=== PATIENT | male | born 1965 | race Caucasian/White ===

== ENCOUNTER 2021-06-23 16:46 | Emergency (ER) | payer MEDICAID, MEDICARE ==
--- NOTE | 2021-06-23 17:29 | EDM.PDOC ---
ED HPI GENERAL MEDICAL PROBLEM - General Chief Complaint: Gastrointestinal Problem Stated Complaint: LOWER ABD PAIN AND BOWEL MOVEMENT ISSUES Time Seen by Provider: 06/23/21 17:30 Source of Information: Reports: Patient, RN History Limitations: Reports: No Limitations - History of Present Illness INITIAL COMMENTS - FREE TEXT/NARRATIVE: no bowel movement for greater than a week. Patient states he is not passing any gas. Pt has taken as stool softner or a stool stimulant this am but this has not seemed to help. Pt continues to eat. No vomiting or nausea noted Onset: Gradual Duration: Getting Worse Location: Reports: Abdomen Quality: Reports: Pressure Improves with: Reports: None Worsens with: Reports: None Context: Reports: Sick Contact Associated Symptoms: Reports: Headaches Treatments EMISSIONS ENGINEER: Reports: Other (see below) (stool softner/stimulant this morning) - Related Data Allergies Allergy/AdvReac Type Severity Reaction Status Date / Time No Known Allergies Allergy Verified 06/23/21 17:09 Home Meds: Home Meds NK [No Known Home Meds] 06/23/21 [History] Social & Family History - Tobacco Use Tobacco Use Status *Q: Never Tobacco User ED ROS GENERAL - Review of Systems Review Of Systems: See Below Constitutional: Reports: No Symptoms Respiratory: Reports: No Symptoms Cardiovascular: Reports: No Symptoms Endocrine: Reports: No Symptoms GI/Abdominal: Reports: Abdominal Pain. Denies: Flatus : Reports: No Symptoms Musculoskeletal: Reports: No Symptoms Skin: Reports: No Symptoms Neurological: Reports: Headache Psychiatric: Reports: No Symptoms Hematologic/Lymphatic: Reports: No Symptoms ED EXAM, GI/ABD - Physical Exam Exam: See Below Exam Limited By: No Limitations General Appearance: Alert, Mild Distress Respiratory/Chest: No Respiratory Distress, Lungs Clear, Normal Breath Sounds Cardiovascular: Normal Peripheral Pulses, Regular Rate, Rhythm, No Edema GI/Abdominal Exam: Soft, Distended, Tender, Abnormal Bowel Sounds (hypo). No: Non-Tender Neurological: Alert, Oriented Psychiatric: Normal Affect, Normal Mood Skin Exam: Warm, Dry, Intact Course - Vital Signs Last Recorded V/S: Last Vital Signs Temp 36.5 C 06/23/21 17:12 Pulse 102 H 06/23/21 17:12 Resp 16 06/23/21 17:12 BP 150/94 H 06/23/21 17:12 Pulse Ox 95 06/23/21 17:12 - Orders/Labs/Meds Orders: Active Orders 24 hr Category Date Time Status Abdomen 1V Upright [CR] Stat Exams 06/23/21 17:30 Taken - Radiology Interpretation Free Text/Narrative:: Abdominal x-ray shows questionable obstruction will obtain CT of abdomen and pelvis for further evaluation. CT impression: 1. mild overall quantity of stool within the colon no obstruction. 2. Fatty infiltration of the liver 3. Mild dilation of the renal collecting systems versus a parapelvic cyst no urinary calculus. 4. 1.7 cm right adrenal gland nodule. 5. Gallstone in the neck of the region of the gallbladder. Gallbladder does not appear excessively extended. 6. Enlarged prostate 7. 7 mm left lower lobe pulmonary nodule. Radiology recommends follow-up of c hest CT in 6 months or comparison with a prior CT if available. CT results reviewed with patient. Patient is encouraged to establish primary care. He states Dr. Panda Otero is his provider. He should follow-up in clinic with Dr. Otero to handle ongoing health as mentioned in the CT scan. He does note he has a appointment with Dr. Otero on Thursday. He is encouraged to keep this note and take his CT scan with him for further review at this time there is no urgent concern at this time. If patient's symptoms change or do not improve he should follow-up with his family provider for further evaluation. Departure - Departure Time of Disposition: 19:39 Disposition: Home, Self-Care 01 Condition: Fair Clinical Impression: Constipation, Abdominal pain - Discharge Information Instructions: Constipation, Adult, [id number], Abdominal Pain, Adult, [id number] Referrals: Timothy Otero Sr, MD [Primary Care Provider] - Forms: ED Department Discharge Additional Instructions: Observe a bland diet, avoid fatty foods as pain may be related to gallbladder. Gallbladder on CT does have a stone but does not show excessive distention of the gallbladder. Sepsis Event Note (ED) - Evaluation Sepsis Screening Result: No Definite Risk - Focused Exam Vital Signs: Vital Signs Temp Pulse Resp BP Pulse Ox 06/23/21 17:12 36.5 C 102 H 16 150/94 H 95 06/23/21 17:01 36.5 C 102 H 16 150/94 H 95 - My Orders Last 24 Hours: My Active Orders 06/23/21 17:30 Abdomen 1V Upright [CR] Stat - Assessment/Plan Last 24 Hours: My Active Orders 06/23/21 17:30 Abdomen 1V Upright [CR] Stat Assessment:: Abdominal pain, likely constipation versus gallbladder pain Plan: Observe a bland diet, keep appointment with Dr. Otero on Thursday. Follow-up with primary care provider in 6 months for pulmonary nodule found on CT.
--- NOTE | 2021-06-23 19:12 | CRLCT ---
For Patients: As a result of the Century Cures Act, medical imaging exams and procedure reports are released immediately into your electronic medical record. You may view this report before your referring provider. If you have questions, please contact your health care provider. HISTORY: Constipation. TECHNIQUE: Noncontrast CT of the abdomen and pelvis. COMPARISON: Radiographs 06/23/2021. FINDINGS: Fatty infiltration of liver with small areas of sparing adjacent to the gallbladder fossa. No biliary ductal dilatation. Gallstone within the neck region of gallbladder. Gallbladder does not appear excessively distended. Spleen size within normal limits. 1.7 cm right adrenal gland nodule demonstrates an internal density of approximately 30 Hounsfield units. This is not specific for an adenoma based on noncontrast CT. Mild thickening of the left adrenal gland is noted. No focal pancreatic abnormality. Either mild dilatation of the renal collecting systems or parapelvic cysts. There is no ureteral calculus on either side nor intrarenal calculus. And slight perinephric stranding is noted. Urinary bladder is mildly distended. Prostate is enlarged. - No small bowel obstruction. No appendicitis. Mild overall quantity of stool within the colon, greatest at the rectosigmoid junction level. No diverticulitis. No fluid collection or free air. Atherosclerotic changes of the abdominal aorta without aneurysm. Small retroperitoneal lymph nodes are not technically enlarged by imaging criteria. - 7 mm left lower lobe pulmonary nodule image #4 series 2. There are small reticulonodular opacities within the lingula which are likely inflammatory or postinflammatory. No consolidation within the lung bases. - Degenerative changes of the spine. Degenerative changes of the sacroiliac joints with bridging osteophytes on the left. Mild degenerative changes of the hips. IMPRESSION: 1. Mild overall quantity stool within the colon. No bowel obstruction. 2. Fatty infiltration of the liver. 3. Mild dilatation of the renal collecting systems versus parapelvic cysts. There is no urinary calculus. 4. 1.7 centimeter right adrenal gland nodule. 5. Gallstone in the neck region of the gallbladder. Gallbladder does not appear excessively distended. 6. Enlarged prostate. 7. 7 mm left lower lobe pulmonary nodule. Recommend followup chest CT in 6 months or comparison with prior chest CTs if available. Dictated by Ricci Zuniga MD @ 06/23/2021 7:10:27 PM Please note that all CT scans at this facility use dose modulation, iterative reconstruction, and/or weight-based dosing when appropriate to reduce radiation dose to as low as reasonably achievable. Dictated by: Ricci Zuniga MD @ 06/23/2021 19:10:34 (Electronically Signed)
--- NOTE | 2021-06-24 10:10 | CR ---
Abdomen 1V Upright CLINICAL HISTORY: Constipation FINDINGS: No free air is identified. There are scattered air-filled loops of small bowel with a few scattered air-fluid levels. There is a small amount of gas and feces in the colon. IMPRESSION: Small bowel distention with scattered air-fluid levels. This could be ileus. Obstruction is felt less likely. No significant fecal retention
== END 2021-06-23 19:44 | disposition home or self-care (01) ==
LOC: JP.ED 16:46
DX: K59.00 Constipation, unspecified (principal)
CPT/HCPCS: 74018; 74018-26; 74176; 99284-25

== ENCOUNTER 2021-06-28 05:22 | Day surgery (SDC) | payer MEDICARE ==
[2021-06-28] MEDS ORDERED: Sodium Chloride 0.9% 1,000 ML IV SCH (06:00)
[2021-06-28] MEDS ORDERED: Propofol 200 MG/20 ML SDV ONE (07:14)
[2021-06-28] MEDS ORDERED: Midazolam 1 MG/ML 2 ML SDV ONE (07:14)
[2021-06-28] MEDS ORDERED: fentaNYL 100 MCG/2 ML SDV ONE (07:14)
--- NOTE | 2021-06-28 10:43 | PROC ---
DATE OF PROCEDURE: 06/28/2021 SURGEON: Timothy Otero MD INDICATIONS: Sathish is a 56-year-old male who comes in for a colonoscopy. He has had constipation and abdominal pain and was scheduled for a back surgery and on the preop found a very small rectum and he had recently been to the emergency room, had a CAT scan of the abdomen, which was unremarkable. A colonoscopy was performed. I was unable to feel the prostate due to the small rectal os. PROCEDURE IN DETAIL: The procedure was explained to the patient and was taken to the OR. Anesthesia was given by nurse child and family therapist. The Olympus 180L scope was used and was placed into the rectum and advanced under direct vision. There was a poor prep noted throughout the entire area. We did get to the cecum. Picture was taken of the cecum area. The remainder of the colon showed a very poor prep throughout the entire colon. No obvious pathology noted, but it was limited because of retained fecal matter. The tube was removed. The patient tolerated the procedure well. I did ask Dr. Olmedo, local surgeon, to look at the rectum. He felt nothing further should be done with this. PREOPERATIVE DIAGNOSIS: Change in bowel habits with constipation. POSTOPERATIVE DIAGNOSES: 1. Small rectal os. 2. Poor prep noted throughout the entire colon. No obvious pathology noted. Timothy Otero MD /[id number]
== END 2021-06-28 09:20 | disposition home or self-care (01) ==
LOC: JP.SDS 05:22
PROVIDERS: ATTEND Internal Medicine
DX: K59.00 Constipation, unspecified (principal); I10 Essential (primary) hypertension; E11.9 Type 2 diabetes mellitus without complications
CPT/HCPCS: 45378; J2250; J2704; J3010; J7030

== ENCOUNTER 2023-05-11 10:50 | Inpatient (IN) | payer MEDICARE ==
[2023-05-11] MEDS ORDERED: Sodium Chloride 0.9% 10 ML Syringe FLUSH PRN (14:40)
[2023-05-11] MEDS ORDERED: 50% Dextrose in Water 50 ML Syringe IVPUSH PRN ×2 (14:48→14:52)
[2023-05-11] MEDS ORDERED: Glucagon,Human Recombinant 1 MG Vial IM PRN ×2 (14:48→14:52)
[2023-05-11 15:04] LABS: BASOPHILS ABSOLUTE AUTO 0.04 K/uL (0.00-0.10); BASOPHILS PERCENT AUTO 0.5 % (0.1-1.3); EOSINOPHILS ABSOLUTE AUTO 0.12 K/uL (0.00-0.40); EOSINOPHILS PERCENT AUTO 1.4 % (0.0-5.4); HEMATOCRIT 44.5 % (38.4-49.7); HEMOGLOBIN 16.2 g/dL (12.9-16.9); IMMATURE GRAN ABSOLUTE AUTO 0.05 K/uL (0.00-0.23); IMMATURE GRAN PERCENT AUTO 0.6 % (0.0-0.7); LYMPHOCYTES ABSOLUTE AUTO 2.83 K/uL (0.8-3.3); LYMPHOCYTES PERCENT AUTO 32.3 % (11.4-47.7); MEAN CORPUSCULAR HEMOGLOBIN 32.1 pg (31.6-35.5); MEAN CORPUSCULAR HGB CONC 36.4 g/dL (31.6-35.5); MEAN CORPUSCULAR VOLUME 88.1 fL (81.4-99.0); MONOCYTES ABSOLUTE AUTO 0.69 K/uL (0.20-0.90); MONOCYTES PERCENT AUTO 7.9 % (3.3-12.6); NEUTROPHILS ABSOLUTE AUTO 5.03 K/uL (1.0-7.6); NEUTROPHILS PERCENT AUTO 57.3 % (40.0-78.1); PLATELET COUNT,PLT 206 K/uL (130-375); RED BLOOD CELL COUNT 5.05 M/uL (4.14-5.76); WHITE BLOOD CELL COUNT,WBC 8.8 K/uL (3.2-11.0)
[2023-05-11 15:25] LABS: A/G RATIO 1.1 (1.2-2.2); ALANINE AMINOTRANSFERASE,ALT 152 U/L (12-78); ALBUMIN 3.6 g/dL (3.4-5.0); ALKALINE PHOSPHATASE 202 U/L (46-116); ASPARTATE AMNIOTRANSFERASE,AST 72 U/L (15-37); BILIRUBIN TOTAL 0.8 mg/dL (0.2-1.0); BLOOD UREA NITROGEN,BUN 17 mg/dL (7-18); CALCIUM 9.4 mg/dL (8.5-10.1); CARBON DIOXIDE,CO2 29 mmol/L (21-32); CHLORIDE,CL 100 mmol/L (100-108); CREATININE 0.8 mg/dL (0.8-1.3); EST CRCL DRUG DOSING (CG) 88.62 mL/min; ESTIMATED GFR 103 mL/min (>60); GLUCOSE RANDOM 273 mg/dL (74-106); POTASSIUM,K 3.9 mmol/L (3.6-5.2); SODIUM,NA 137 mmol/L (140-148)
[2023-05-11 15:26] LABS: ANION GAP 11.9 mmol/L (5.0-14.0)
[2023-05-11 15:32] LABS: APPEARANCE,URINE CLEAR (CLEAR); BILIRUBIN,URINE NEGATIVE (NEGATIVE); COLOR,URINE YELLOW (YELLOW); GLUCOSE,URINE 500 mg/dL (NEGATIVE); KETONES,URINE NEGATIVE (NEGATIVE); LEUKOCYTE ESTERASE,URINE NEGATIVE (NEGATIVE); NITRITE,URINE NEGATIVE (NEGATIVE); OCCULT BLOOD,URINE NEGATIVE (NEGATIVE); PH,URINE 6.5 (5.0-8.0); PROTEIN,URINE NEGATIVE (NEGATIVE); UROBILINOGEN,URINE 0.2 EU/dL (0.2-1.0)
[2023-05-11 15:47] LABS: AMORPHOUS SEDIMENT,URINE NOT SEEN; BACTERIA,URINE FEW; EPITHELIAL CELLS,URINE NOT SEEN; MUCUS,URINE NOT SEEN; RBC,URINE 0-5 (0-5); WBC,URINE 0-5 (0-5)
[2023-05-11] MEDS: Insulin Glargine,Human Rec. Analog 100 Units/ML 3 ML Pen SUBCUT SCH (15:52)
[2023-05-11] MEDS ORDERED: Insulin Lispro Protamine/Lispro 75-25 100 Units/ML 10 ML Vial SUBCUT SCH (16:00)
[2023-05-11] MEDS: Insulin Lispro 100 Unit/ML 3 ML KwikPen SUBCUT SCH ×2 (16:54→23:00)
[2023-05-12] MEDS: Insulin Glargine,Human Rec. Analog 100 Units/ML 3 ML Pen SUBCUT SCH (08:03)
[2023-05-12] MEDS: Empagliflozin 10 MG Tab PO SCH (08:03)
[2023-05-12] MEDS: Insulin Lispro 100 Unit/ML 3 ML KwikPen SUBCUT SCH ×4 (08:07→21:05)
[2023-05-12] MEDS ORDERED: Insulin Lispro 100 Unit/ML 3 ML KwikPen SUBCUT SCH (09:00)
[2023-05-12 18:15] LABS: BASOPHILS ABSOLUTE AUTO 0.03 K/uL (0.00-0.10); BASOPHILS PERCENT AUTO 0.3 % (0.1-1.3); EOSINOPHILS ABSOLUTE AUTO 0.16 K/uL (0.00-0.40); EOSINOPHILS PERCENT AUTO 1.7 % (0.0-5.4); HEMATOCRIT 46.5 % (38.4-49.7); HEMOGLOBIN 16.5 g/dL (12.9-16.9); IMMATURE GRAN ABSOLUTE AUTO 0.06 K/uL (0.00-0.23); IMMATURE GRAN PERCENT AUTO 0.6 % (0.0-0.7); LYMPHOCYTES ABSOLUTE AUTO 3.11 K/uL (0.8-3.3); LYMPHOCYTES PERCENT AUTO 32.2 % (11.4-47.7); MEAN CORPUSCULAR HEMOGLOBIN 32.1 pg (31.6-35.5); MEAN CORPUSCULAR HGB CONC 35.5 g/dL (31.6-35.5); MEAN CORPUSCULAR VOLUME 90.5 fL (81.4-99.0); MONOCYTES PERCENT AUTO 7.3 % (3.3-12.6); NEUTROPHILS ABSOLUTE AUTO 5.59 K/uL (1.0-7.6); NEUTROPHILS PERCENT AUTO 57.9 % (40.0-78.1); PLATELET COUNT,PLT 200 K/uL (130-375); RED BLOOD CELL COUNT 5.14 M/uL (4.14-5.76); WHITE BLOOD CELL COUNT,WBC 9.7 K/uL (3.2-11.0)
[2023-05-12 18:37] LABS: ALANINE AMINOTRANSFERASE,ALT 157 U/L (12-78); ALBUMIN 3.5 g/dL (3.4-5.0); ALKALINE PHOSPHATASE 151 U/L (46-116); ANION GAP 10.1 mmol/L (5.0-14.0); ASPARTATE AMNIOTRANSFERASE,AST 95 U/L (15-37); BILIRUBIN TOTAL 0.7 mg/dL (0.2-1.0); BLOOD UREA NITROGEN,BUN 18 mg/dL (7-18); CALCIUM 9.7 mg/dL (8.5-10.1); CARBON DIOXIDE,CO2 32 mmol/L (21-32); CHLORIDE,CL 100 mmol/L (100-108); EST CRCL DRUG DOSING (CG) 70.79 mL/min; ESTIMATED GFR 88 mL/min (>60); GLUCOSE RANDOM 164 mg/dL (74-106); POTASSIUM,K 4.1 mmol/L (3.6-5.2); SODIUM,NA 138 mmol/L (140-148)
[2023-05-12] MEDS: Lisinopril 10 MG Tab PO SCH (18:44)
[2023-05-13] MEDS ORDERED: metFORMIN 500 MG Tab PO SCH (08:00)
[2023-05-13] MEDS: Empagliflozin 10 MG Tab PO SCH (08:22)
[2023-05-13] MEDS: Lisinopril 10 MG Tab PO SCH (08:22)
[2023-05-13] MEDS: Insulin Glargine,Human Rec. Analog 100 Units/ML 3 ML Pen SUBCUT SCH (08:24)
[2023-05-13] MEDS: Insulin Lispro 100 Unit/ML 3 ML KwikPen SUBCUT SCH ×4 (08:25→21:55)
[2023-05-13 12:08] LABS: ALBUMIN 3.4 g/dL (3.4-5.0); BILIRUBIN DIRECT 0.1 mg/dL (0.0-0.2); BILIRUBIN INDIRECT 0.7; BILIRUBIN TOTAL 0.8 mg/dL (0.2-1.0); PROTEIN TOTAL,TP 6.8 g/dL (6.4-8.2)
[2023-05-14] MEDS: Insulin Lispro 100 Unit/ML 3 ML KwikPen SUBCUT SCH ×2 (07:59→12:06)
[2023-05-14] MEDS: Lisinopril 10 MG Tab PO SCH (08:00)
[2023-05-14] MEDS: Insulin Glargine,Human Rec. Analog 100 Units/ML 3 ML Pen SUBCUT SCH (08:00)
[2023-05-14] MEDS: Empagliflozin 10 MG Tab PO SCH (08:01)
[2023-05-14 13:12] LABS: HBSAG SCREEN Negative (Negative); HCV AB Non Reactive (Non Reactive); HEP A AB, IGM Negative (Negative); HEP B CORE AB, IGM Negative (Negative)
== END 2023-05-14 12:25 | disposition home or self-care (01) | DRG 639 ==
LOC: JP.ICU 10:50 → JP.MS 05-12 12:03
PROVIDERS: ADMIT Internal Medicine; ATTEND Internal Medicine
DX: E11.9 Type 2 diabetes mellitus without complications (principal); I10 Essential (primary) hypertension; K59.09 Other constipation; M54.2 Cervicalgia; G89.29 Other chronic pain; Z20.822 Contact with and (suspected) exposure to COVID-19; M54.16 Radiculopathy, lumbar region; I20.9 Angina pectoris, unspecified; G47.00 Insomnia, unspecified; G47.30 Sleep apnea, unspecified; R19.7 Diarrhea, unspecified; M19.90 Unspecified osteoarthritis, unspecified site; M54.9 Dorsalgia, unspecified; R79.89 Other specified abnormal findings of blood chemistry; Z79.4 Long term (current) use of insulin; Z79.899 Other long term (current) drug therapy; Z87.81 Personal history of (healed) traumatic fracture; Z98.1 Arthrodesis status; Z98.890 Other specified postprocedural states; Z83.3 Family history of diabetes mellitus
CPT/HCPCS: 36415; 71046; 80053; 80074; 80076; 81001; 82947; 83605; 85025; A9270-GY; J1815; J1815-GY; U0002

== ENCOUNTER 2023-12-23 12:00 | Inpatient (IN) | payer MEDICARE ==
[2023-12-23 15:41] LABS: CORONAVIRUS COVID-19 NAA NEGATIVE (NEGATIVE); INFLUENZA A NAA NEGATIVE (NEGATIVE); INFLUENZA B NAA NEGATIVE (NEGATIVE); RESPIRATORY SYNCYTIAL VIR NAA NEGATIVE (NEGATIVE)
[2023-12-23 16:06] LABS: BASOPHILS ABSOLUTE AUTO 0.04 K/uL (0.00-0.10); BASOPHILS PERCENT AUTO 0.4 % (0.1-1.3); EOSINOPHILS ABSOLUTE AUTO 0.21 K/uL (0.00-0.40); EOSINOPHILS PERCENT AUTO 2.2 % (0.0-5.4); HEMATOCRIT 41.4 % (38.4-49.7); HEMOGLOBIN 15.1 g/dL (12.9-16.9); IMMATURE GRAN ABSOLUTE AUTO 0.05 K/uL (0.00-0.23); IMMATURE GRAN PERCENT AUTO 0.5 % (0.0-0.7); LYMPHOCYTES ABSOLUTE AUTO 3.29 K/uL (0.8-3.3); LYMPHOCYTES PERCENT AUTO 33.7 % (11.4-47.7); MEAN CORPUSCULAR HEMOGLOBIN 31.7 pg (31.6-35.5); MEAN CORPUSCULAR HGB CONC 36.5 g/dL (31.6-35.5); MONOCYTES ABSOLUTE AUTO 0.82 K/uL (0.20-0.90); MONOCYTES PERCENT AUTO 8.4 % (3.3-12.6); NEUTROPHILS ABSOLUTE AUTO 5.34 K/uL (1.0-7.6); NEUTROPHILS PERCENT AUTO 54.8 % (40.0-78.1); PLATELET COUNT,PLT 215 K/uL (130-375); RED BLOOD CELL COUNT 4.76 M/uL (4.14-5.76); WHITE BLOOD CELL COUNT,WBC 9.8 K/uL (3.2-11.0)
[2023-12-23] MEDS ORDERED: Glucagon,Human Recombinant 1 MG Vial IM PRN (16:17)
[2023-12-23] MEDS ORDERED: 50% Dextrose in Water 50 ML Syringe IVPUSH PRN (16:17)
[2023-12-23 16:29] LABS: A/G RATIO 1.1 (1.2-2.2); ALANINE AMINOTRANSFERASE,ALT 132 U/L (12-78); ALBUMIN 3.7 g/dL (3.4-5.0); ALKALINE PHOSPHATASE 133 U/L (46-116); ASPARTATE AMNIOTRANSFERASE,AST 95 U/L (15-37); BILIRUBIN TOTAL 0.6 mg/dL (0.2-1.0); BLOOD UREA NITROGEN,BUN 12 mg/dL (7-18); CALCIUM 9.1 mg/dL (8.5-10.1); CARBON DIOXIDE,CO2 27 mmol/L (21-32); CHLORIDE,CL 101 mmol/L (100-108); CREATININE 0.9 mg/dL (0.8-1.3); EST CRCL DRUG DOSING (CG) 77.82 mL/min; ESTIMATED GFR 99 mL/min (>60); GLUCOSE RANDOM 69 mg/dL (74-106); POTASSIUM,K 3.1 mmol/L (3.6-5.2); PROTEIN TOTAL,TP 7.2 g/dL (6.4-8.2); SODIUM,NA 138 mmol/L (140-148)
[2023-12-23 16:30] LABS: ANION GAP 13.1 mmol/L (5.0-14.0)
[2023-12-23 16:38] LABS: HEMOGLOBIN A1C 13.6 % (4.5-6.2)
[2023-12-23] MEDS: Insulin Lispro 100 Unit/ML 3 ML KwikPen SUBCUT SCH (17:38)
[2023-12-24] MEDS: Empagliflozin 25 MG Tab PO SCH (08:23)
[2023-12-24] MEDS: Lisinopril 20 MG Tab PO SCH (08:24)
[2023-12-24] MEDS: Finasteride 5 MG Tab PO SCH (08:24)
[2023-12-24] MEDS: amLODIPine 5 MG Tab PO SCH (08:24)
[2023-12-24] MEDS: Insulin Glargine,Human Rec. Analog 100 Units/ML 3 ML Pen SUBCUT SCH (08:25)
[2023-12-24] MEDS ORDERED: Lisinopril 10 MG Tab PO SCH (09:00)
[2023-12-24] MEDS ORDERED: Non-Formulary Medication 1 Each (Dapagliflozin Propanediol [Farxiga] 10 MG Tablet) PO SCH (09:00)
[2023-12-24] MEDS ORDERED: Non-Formulary Medication 1 Each (Amlodipine [Norvasc] 10 MG Tablet) PO SCH (09:00)
[2023-12-24] MEDS ORDERED: Non-Formulary Medication 1 Each (Insulin Degludec [Tresiba Flextouch U-200] 200 UNIT/ML Pe SQ SCH (09:00)
[2023-12-24] MEDS: Potassium Chloride 20 MEQ Tab.ER PO SCH (09:59)
[2023-12-25 05:44] LABS: A/G RATIO 0.9 (1.2-2.2); ALBUMIN 3.4 g/dL (3.4-5.0); ANION GAP 11.2 mmol/L (5.0-14.0); BILIRUBIN DIRECT 0.16 mg/dL (0.0-0.2); BILIRUBIN INDIRECT 0.44; BILIRUBIN TOTAL 0.6 mg/dL (0.2-1.0); CALCIUM 9.3 mg/dL (8.5-10.1); CREATININE 0.9 mg/dL (0.8-1.3); EST CRCL DRUG DOSING (CG) 77.71 mL/min; POTASSIUM,K 3.9 mmol/L (3.6-5.2)
[2023-12-25] MEDS: Insulin Lispro 100 Unit/ML 3 ML KwikPen SUBCUT SCH ×2 (08:15→12:14)
[2023-12-25] MEDS: Insulin Glargine,Human Rec. Analog 100 Units/ML 3 ML Pen SUBCUT SCH (08:15)
[2023-12-26 17:52] LABS: HEPATITIS A ANTIBODY, IGM Negative (Negative); HEPATITIS B CORE ANTIBODY, IGM Negative (Negative); HEPATITIS B SURFACE ANTIGEN Negative (Negative); HEPATITIS C AB CIA INTERP Negative (Negative); HEPATITIS C ANTIBODY CIA INDEX 0.09 IV
== END 2023-12-25 14:25 | disposition home or self-care (01) | DRG 639 ==
LOC: JP.MS 14:15
PROVIDERS: ADMIT Internal Medicine; ATTEND Internal Medicine
DX: E11.65 Type 2 diabetes mellitus with hyperglycemia (principal); I10 Essential (primary) hypertension; M19.90 Unspecified osteoarthritis, unspecified site; I25.10 Atherosclerotic heart disease of native coronary artery without angina pectoris; G47.30 Sleep apnea, unspecified; G89.29 Other chronic pain; M54.9 Dorsalgia, unspecified; M54.2 Cervicalgia; N40.0 Benign prostatic hyperplasia without lower urinary tract symptoms; Z79.4 Long term (current) use of insulin; Z87.891 Personal history of nicotine dependence; Z98.890 Other specified postprocedural states
CPT/HCPCS: 0241U; 36415; 80048; 80053; 80074; 80076; 82947; 83036; 85025; A9270-GY; J1815; J1815-GY

== ENCOUNTER 2024-11-10 19:23 | Observation (INO) | payer SELFPAY ==
[2024-11-10] MEDS ORDERED: CEPHALEXIN 500 MG PO SCH (20:30)
[2024-11-10] MEDS ORDERED: Sodium Chloride 0.9% 10 ML Syringe FLUSH PRN (20:34)
[2024-11-10] MEDS ORDERED: Dextrose 5%-0.9% NaCl 1,000 ML IV SCH (20:45)
[2024-11-10 20:59] LABS: BASOPHILS ABSOLUTE AUTO 0.04 K/uL (0.00-0.10); BASOPHILS PERCENT AUTO 0.4 % (0.1-1.3); EOSINOPHILS ABSOLUTE AUTO 0.28 K/uL (0.00-0.40); HEMATOCRIT 42.7 % (38.4-49.7); HEMOGLOBIN 15.3 g/dL (12.9-16.9); IMMATURE GRAN ABSOLUTE AUTO 0.04 K/uL (0.00-0.23); IMMATURE GRAN PERCENT AUTO 0.4 % (0.0-0.7); LYMPHOCYTES ABSOLUTE AUTO 3.07 K/uL (0.8-3.3); LYMPHOCYTES PERCENT AUTO 33.3 % (11.4-47.7); MEAN CORPUSCULAR HEMOGLOBIN 32.2 pg (31.6-35.5); MEAN CORPUSCULAR HGB CONC 35.8 g/dL (31.6-35.5); MEAN CORPUSCULAR VOLUME 89.9 fL (81.4-99.0); MONOCYTES ABSOLUTE AUTO 1.09 K/uL (0.20-0.90); MONOCYTES PERCENT AUTO 11.8 % (3.3-12.6); NEUTROPHILS ABSOLUTE AUTO 4.69 K/uL (1.0-7.6); NEUTROPHILS PERCENT AUTO 51.1 % (40.0-78.1); PLATELET COUNT,PLT 221 K/uL (130-375); RED BLOOD CELL COUNT 4.75 M/uL (4.14-5.76); WHITE BLOOD CELL COUNT,WBC 9.2 K/uL (3.2-11.0)
[2024-11-10 21:20] LABS: ALANINE AMINOTRANSFERASE,ALT 62 U/L (12-78); ALBUMIN 3.7 g/dL (3.4-5.0); ALKALINE PHOSPHATASE 107 U/L (46-116); ANION GAP 13.8 mmol/L (5.0-14.0); ASPARTATE AMNIOTRANSFERASE,AST 29 U/L (15-37); BILIRUBIN TOTAL 0.8 mg/dL (0.2-1.0); BLOOD UREA NITROGEN,BUN 15 mg/dL (7-18); CARBON DIOXIDE,CO2 26 mmol/L (21-32); CHLORIDE,CL 103 mmol/L (100-108); EST CRCL DRUG DOSING (CG) 69.19 mL/min; ESTIMATED GFR 87 mL/min (>60); GLUCOSE RANDOM 159 mg/dL (74-106); POTASSIUM,K 3.8 mmol/L (3.6-5.2); PROTEIN TOTAL,TP 7.4 g/dL (6.4-8.2); SODIUM,NA 139 mmol/L (140-148)
[2024-11-10] MEDS: Sodium Chloride 0.9% 1,000 ML IV SCH (22:39)
[2024-11-10] MEDS: Cephalexin 250 MG Cap PO ONE (22:44)
[2024-11-11 06:06] LABS: BASOPHILS ABSOLUTE AUTO 0.03 K/uL (0.00-0.10); BASOPHILS PERCENT AUTO 0.4 % (0.1-1.3); EOSINOPHILS ABSOLUTE AUTO 0.23 K/uL (0.00-0.40); EOSINOPHILS PERCENT AUTO 3.2 % (0.0-5.4); HEMOGLOBIN 15.1 g/dL (12.9-16.9); IMMATURE GRAN ABSOLUTE AUTO 0.03 K/uL (0.00-0.23); IMMATURE GRAN PERCENT AUTO 0.4 % (0.0-0.7); LYMPHOCYTES ABSOLUTE AUTO 1.94 K/uL (0.8-3.3); LYMPHOCYTES PERCENT AUTO 27.3 % (11.4-47.7); MEAN CORPUSCULAR HEMOGLOBIN 32.2 pg (31.6-35.5); MEAN CORPUSCULAR HGB CONC 35.1 g/dL (31.6-35.5); MEAN CORPUSCULAR VOLUME 91.7 fL (81.4-99.0); MONOCYTES ABSOLUTE AUTO 0.95 K/uL (0.20-0.90); MONOCYTES PERCENT AUTO 13.4 % (3.3-12.6); NEUTROPHILS ABSOLUTE AUTO 3.93 K/uL (1.0-7.6); NEUTROPHILS PERCENT AUTO 55.3 % (40.0-78.1); PLATELET COUNT,PLT 205 K/uL (130-375); RED BLOOD CELL COUNT 4.69 M/uL (4.14-5.76); WHITE BLOOD CELL COUNT,WBC 7.1 K/uL (3.2-11.0)
[2024-11-11 06:21] LABS: ALANINE AMINOTRANSFERASE,ALT 63 U/L (12-78); ALBUMIN 3.5 g/dL (3.4-5.0); ALKALINE PHOSPHATASE 97 U/L (46-116); ANION GAP 7.8 mmol/L (5.0-14.0); ASPARTATE AMNIOTRANSFERASE,AST 34 U/L (15-37); BILIRUBIN TOTAL 0.8 mg/dL (0.2-1.0); BLOOD UREA NITROGEN,BUN 14 mg/dL (7-18); CALCIUM 8.6 mg/dL (8.5-10.1); CARBON DIOXIDE,CO2 27 mmol/L (21-32); CHLORIDE,CL 105 mmol/L (100-108); CREATININE 0.9 mg/dL (0.8-1.3); EST CRCL DRUG DOSING (CG) 76.88 mL/min; ESTIMATED GFR 98 mL/min (>60); GLUCOSE RANDOM 147 mg/dL (74-106); POTASSIUM,K 3.9 mmol/L (3.6-5.2); SODIUM,NA 140 mmol/L (140-148)
[2024-11-11] MEDS ORDERED: fentaNYL 50 MCG/ML SDV ONE (07:02)
[2024-11-11] MEDS ORDERED: Propofol 200 MG/20 ML SDV ONE (07:02)
[2024-11-11] MEDS: Finasteride 5 MG Tab PO SCH (08:53)
[2024-11-11] MEDS: CEPHALEXIN 500 MG PO SCH (12:13)
== END 2024-11-11 14:28 | disposition home or self-care (01) ==
LOC: JP.MS 19:23
PROVIDERS: ADMIT Internal Medicine; ATTEND Internal Medicine
DX: K20.90 Esophagitis, unspecified without bleeding (principal); E11.9 Type 2 diabetes mellitus without complications; I10 Essential (primary) hypertension; I25.10 Atherosclerotic heart disease of native coronary artery without angina pectoris; Z79.4 Long term (current) use of insulin; Z79.899 Other long term (current) drug therapy
CPT/HCPCS: 36415; 43235; 71046; 80053; 82947; 85025; 96360; 96361; A9270; G0378; J2704; J3010; J7030

== ENCOUNTER 2025-06-17 10:44 | Emergency (ER) | payer MEDICARE ==
[2025-06-17] MEDS: Na Phos,M-B/Na Phos,DI-B 60 ML, Mineral Oil 50 ML, Docusate Sodium 400 MG, Magnesium Ci... RECTAL ONE (13:22)
[2025-06-17] MEDS: Glycerin 2.1 GM Supp RECTAL ONE (14:30)
== END 2025-06-17 15:13 | disposition home or self-care (01) ==
LOC: JP.ED 10:44
DX: K59.00 Constipation, unspecified (principal); I10 Essential (primary) hypertension; E11.9 Type 2 diabetes mellitus without complications; Z79.4 Long term (current) use of insulin; Z79.899 Other long term (current) drug therapy
CPT/HCPCS: 99283; A9270

== ENCOUNTER 2025-06-20 07:50 | Day surgery (SDC) | payer MEDICARE ==
[2025-06-20] MEDS ORDERED: Mineral Oil 133 ML BOTTLE RECTAL ONE (08:30)
[2025-06-20] MEDS: Lactated Ringers 1,000 ML IV SCH (08:41)
[2025-06-20] MEDS ORDERED: Lactated Ringers 1,000 ML IV SCH (09:00)
[2025-06-20] MEDS ORDERED: Propofol 200 MG/20 ML SDV ONE ×2 (09:27→09:55)
[2025-06-20] MEDS ORDERED: fentaNYL 100 MCG/2 ML SDV ONE (09:27)
[2025-06-20] MEDS ORDERED: Midazolam 1 MG/ML 2 ML SDV ONE (09:27)
== END 2025-06-20 14:16 | disposition home or self-care (01) ==
LOC: JP.SDS 07:50
PROVIDERS: ATTEND Internal Medicine
DX: K56.41 Fecal impaction (principal)
CPT/HCPCS: 45915; 74019; 82947; A9270; J2250; J2704; J3010; J7120

== ENCOUNTER 2025-06-22 06:54 | Day surgery (SDC) | payer MEDICARE ==
[2025-06-22] MEDS: Lactated Ringers 1,000 ML IV SCH (07:00)
[2025-06-22] MEDS ORDERED: Midazolam 1 MG/ML 2 ML SDV ONE (07:14)
[2025-06-22] MEDS ORDERED: fentaNYL 50 MCG/ML SDV ONE (07:14)
[2025-06-22] MEDS ORDERED: Propofol 200 MG/20 ML SDV ONE ×2 (07:14→08:00)
== END 2025-06-22 12:15 | disposition home or self-care (01) ==
LOC: JP.SDS 06:54
PROVIDERS: ATTEND Internal Medicine
DX: K56.49 Other impaction of intestine (principal); I25.10 Atherosclerotic heart disease of native coronary artery without angina pectoris; I10 Essential (primary) hypertension; E11.9 Type 2 diabetes mellitus without complications; Z79.4 Long term (current) use of insulin; Z79.899 Other long term (current) drug therapy
CPT/HCPCS: 00811; 45378; 74019; J2250; J2704; J3010; J7120

== ENCOUNTER 2025-07-04 17:13 | Emergency (ER) | payer MEDICARE | END 2025-07-04 18:28 | disposition home or self-care (01) | LOC: JP.ED 17:13 | DX: R33.9 Retention of urine, unspecified (principal); I25.10 Atherosclerotic heart disease of native coronary artery without angina pectoris; I10 Essential (primary) hypertension; E11.9 Type 2 diabetes mellitus without complications; Z79.4 Long term (current) use of insulin; Z79.899 Other long term (current) drug therapy | CPT/HCPCS: 51702; 99283 ==

== ENCOUNTER 2025-07-23 01:21 | Emergency (ER) | payer MEDICARE | END 2025-07-23 02:53 | disposition home or self-care (01) | LOC: JP.ED 01:21 | DX: R33.9 Retention of urine, unspecified (principal); I25.10 Atherosclerotic heart disease of native coronary artery without angina pectoris; I10 Essential (primary) hypertension; E10.9 Type 1 diabetes mellitus without complications; Z79.4 Long term (current) use of insulin; Z79.899 Other long term (current) drug therapy | CPT/HCPCS: 51702; 99283 ==

== ENCOUNTER 2025-07-27 02:52 | Emergency (ER) | payer MEDICARE ==
[2025-07-27 03:49] LABS: APPEARANCE,URINE CLOUDY (CLEAR); GLUCOSE,URINE 500 mg/dL (NEGATIVE); OCCULT BLOOD,URINE LARGE (NEGATIVE); SQUAMOUS EPITHELIAL CELLS,UR RARE /HPF; UROTHELIAL CELLS,URINE NOT SEEN /HPF
== END 2025-07-27 03:57 | disposition home or self-care (01) ==
LOC: JP.ED 02:52
DX: N40.1 Benign prostatic hyperplasia with lower urinary tract symptoms (principal); R33.8 Other retention of urine; I25.10 Atherosclerotic heart disease of native coronary artery without angina pectoris; I10 Essential (primary) hypertension; E11.9 Type 2 diabetes mellitus without complications; Z79.899 Other long term (current) drug therapy; Z79.4 Long term (current) use of insulin
CPT/HCPCS: 51702; 81001; 99283

== ENCOUNTER 2025-08-01 16:36 | Emergency (ER) | payer MEDICARE | END 2025-08-01 17:23 | disposition home or self-care (01) | LOC: JP.ED 16:36 | DX: R33.9 Retention of urine, unspecified (principal); I10 Essential (primary) hypertension; E11.9 Type 2 diabetes mellitus without complications; Z79.4 Long term (current) use of insulin; Z79.899 Other long term (current) drug therapy | CPT/HCPCS: 51702; 99283 ==

== ENCOUNTER 2025-09-11 01:31 | Emergency (ER) | payer MEDICARE | END 2025-09-11 02:47 | disposition home or self-care (01) | LOC: JP.ED 01:31 | DX: Z46.6 Encounter for fitting and adjustment of urinary device (principal); I10 Essential (primary) hypertension; E11.9 Type 2 diabetes mellitus without complications; Z79.4 Long term (current) use of insulin; Z79.899 Other long term (current) drug therapy | CPT/HCPCS: 51702; 99283 ==

== ENCOUNTER 2025-09-25 15:51 | Emergency (ER) | payer MEDICARE ==
[2025-09-25 18:38] LABS: BASOPHILS ABSOLUTE AUTO 0.04 K/uL (0.00-0.10); BASOPHILS PERCENT AUTO 0.3 % (0.1-1.3); EOSINOPHILS ABSOLUTE AUTO 0.23 K/uL (0.00-0.40); EOSINOPHILS PERCENT AUTO 1.7 % (0.0-5.4); IMMATURE GRAN ABSOLUTE AUTO 0.04 K/uL (0.00-0.23); IMMATURE GRAN PERCENT AUTO 0.3 % (0.0-0.7); LYMPHOCYTES ABSOLUTE AUTO 3.03 K/uL (0.8-3.3); LYMPHOCYTES PERCENT AUTO 22.9 % (11.4-47.7); MONOCYTES ABSOLUTE AUTO 0.85 K/uL (0.20-0.90); MONOCYTES PERCENT AUTO 6.4 % (3.3-12.6); NEUTROPHILS ABSOLUTE AUTO 9.05 K/uL (1.0-7.6); NEUTROPHILS PERCENT AUTO 68.4 % (40.0-78.1); PLATELET COUNT,PLT 225 K/uL (130-375); RED BLOOD CELL COUNT 5.41 M/uL (4.14-5.76); WHITE BLOOD CELL COUNT,WBC 13.2 K/uL (3.2-11.0)
[2025-09-25 19:02] LABS: A/G RATIO 1.2 (1.2-2.2); ALANINE AMINOTRANSFERASE,ALT 44 U/L (12-78); ASPARTATE AMNIOTRANSFERASE,AST 24 U/L (15-37); BILIRUBIN TOTAL 0.9 mg/dL (0.2-1.0); BLOOD UREA NITROGEN,BUN 11 mg/dL (7-18); CARBON DIOXIDE,CO2 30 mmol/L (21-32); CHLORIDE,CL 101 mmol/L (100-108); CREATININE 0.8 mg/dL (0.8-1.3); EST CRCL DRUG DOSING (CG) 85.42 mL/min; ESTIMATED GFR 101 mL/min (>60); GLUCOSE RANDOM 209 mg/dL (74-106); POTASSIUM,K 4.4 mmol/L (3.6-5.2); PROTEIN TOTAL,TP 7.9 g/dL (6.4-8.2); SODIUM,NA 140 mmol/L (140-148)
== END 2025-09-25 19:43 | disposition home or self-care (01) ==
LOC: JP.ED 15:51
DX: I10 Essential (primary) hypertension (principal); I25.10 Atherosclerotic heart disease of native coronary artery without angina pectoris; E11.9 Type 2 diabetes mellitus without complications; Z79.4 Long term (current) use of insulin; Z79.899 Other long term (current) drug therapy
CPT/HCPCS: 36415; 80053; 85025; 99284; A9270